=== PATIENT | male | born 1970 | race Caucasian/White ===

== ENCOUNTER → 2017-05-07 | Outpatient (CLI) | payer OTHER ==
[~2017-05-07] MED LIST: ASPI81TA28 PO; FEXO1TAB49 PO; HYDR25TA4 PO; LISI-461 PO; VNTHFA/IN INH
--- NOTE | 2017-05-08 06:37 | PAP/PSG TECHNICIAN REPORT ---
[facility] Repair Clerk Polysomnogram Report Study name: None Report date: 05/08/2017 Study date: 05/07/2017 Referring Physician: Nidhi Dunbra M.D. Name: YESSENIA ALARCON Interpreting Physician: Willie Dunbar M.D. Date of : 1970 Repair Clerk: SHELLI Conklin. Sex: Male Age: 46 StudyType: PSG Weight: 321 lbs Height: 46 years, Height 6' 0.5" Neck Circum: 18 inches BMI: 42.93 Medications: Aisha 180 mg, Lisinopril 10 mg, HCTZ 25 mg, Aspirin 81 mg, Fish Oil 3600 mg Patient History 46 yr. old male here for a possible split night sleep study in room 6. Patient has atrial fibrillation, loud snoring, and unrefreshing sleep. Patients Brother has MAGDI. Patients [place] sleepiness scale score is 8/24. Parameters Monitored NPSG: E1-M2, E2-M1, Fp1-M2, Fp2-M1, F3-M2, F4-M2, F4-M1, C3-M2, C4-M2, C4-M1, O1-M2, O2-M2, O2-M1, T3-M2, T4-M1, P3-M2, P4-M1, CHIN1, CHIN2, HR, EKG, Legs, PFLOW, SNOR, FLOW, CFLOW, Tidal Volume, THOR, ABDO, SpO2, PLTH, CPRESS, ETCO2 Wave, ETCO2, pH Sleep Architecture Sleep Stages Time at Lights Off 9:35:58 PM STAGES Time (min.) TST (%) Time at Lights On 5:41:28 AM Wake 110.5 -- Total Recording Time (TRT) 486.50 min. N1 44.5 12 Total Sleep Period (TSP) 454.0 min. N2 269.5 72 Total Sleep Time (TST) 375.0min. N3 32.0 9 Awake Time 110.5 min. REM 29.0 8 Wake after Sleep Onset 79.0 min. Sleep Efficiency (SE) 77 % Sleep Onset Latency (BIRGIT) 31.5 min. Number of Stage 1 Shifts None Awakenings 35 Stage Changes 120 Number of REM periods 4 REM 29.0 8 REM Latency 183.5 min. NREM 346.0 92 Body Position Analysis Supine Right Left Side Prone Vertical Total Sleep Time (min.) 222.0 135.9 82.0 217.87 0.0 0.0 Total Sleep Time (%) 42% 36% 22% 58 0% N/A% Total Sleep Time REM (min.) 7.0 22.0 0.0 None 0.0 0.0 Total Sleep Time NREM (min.) 150.1 113.9 82.0 None 0.0 0.0 Intermittent Wake (min.) 64.9 16.3 29.3 None 0.0 0.0 Total Sleep Period (%) 42% None None None None None Arousals Myoclonus (PLM) * Events Count Index Events Count Index Spontaneous 5 1 Events Awake (PLMW) 70 38.0 Respiratory 3 0.5 Events Asleep w/ Arousal (PLMA) 19 3.0 PLM 18 3 Events Asleep w/o Arousal (PLMS) 26 4.2 Snoring 8 1 Total Asleep 45 7.2 Total 34 5 Total 115 14 Respiratory Analysis * CA OA MA CH H RERA Total Count 0 0 0 0 97 0 97 Index 0.0 0.0 0.0 0 15.5 0 15.5 Mean Duration 0.0 0.0 0.0 0.00 21.5 0.0 21.5 Longest Duration 0.0 0.0 0.0 0.00 0.0 0.0 57.7 Respiratory Event Summary Total Supine ~Supine Right Left Prone REM NREM Apneas Count 0 0 0 0 0 N/A 0 0 Index 0.0 0 0 0.0 0.0 N/A 0 0 Hypopneas (4% Desat) Count 97 62 35 22 13 N/A 15 82 Index 15.5 23.7 10 9.7 9.5 N/A 31.0 14.2 Apneas & All Hypopneas Count 97 62 35 22 13 N/A 15 82 Index 15.5 24 10 10 10 N/A 31.0 14.2 Respiratory Events (Adolescent Counselor+All Hyp+RERA) Count 97 62 35 22 13 N/A 15 82 Index 15.5 24 10 9.7 9.5 N/A 31.0 14.2 Respiratory Related Arousal Count 3 62 2 2 0 N/A 1 2 Index 0.5 0 1 1 0 N/A 2 0 Snoring Analysis Supine Right Left Prone REM NREM Total Snore duration 25.3 min Snores count 518 357 158 N/A 22 1,011 1,033 Snore mean duration 1.5 Sec Snores index 198 158 116 N/A 45.5 175.3 165.3 TST with snoring (%) 6.7% Desaturation Event Summary: Minimum %SpO2 Event Count Mean/Min/Max Duration(sec.) Desaturation Index % Time In Bed > 90 80 26.2 / 7.0 / 51.8 11.1 90.9 86 - 90 3 29.1 / 15.0 / 50.5 4.2 9.1 81 - 85 0 N/A 0.0 0.0 76 - 80 0 N/A 0.0 0.0 71 - 75 0 N/A 0.0 0.0 66 - 70 0 N/A 0.0 0.0 61 - 65 0 N/A 0.0 0.0 56 - 60 0 N/A 0.0 0.0 51 - 55 0 N/A 0.0 0.0 < 50 0 N/A 0.0 0.0 Total REM NREM Awake <50% 0.0 min. 0.0 min. 0.0 min. 0.0 min. 51 - 60% 0.0 min. 0.0 min. 0.0 min. 0.0 min. 61 - 70% 0.0 min. 0.0 min. 0.0 min. 0.0 min. 71 - 80% 0.0 min. 0.0 min. 0.0 min. 0.0 min. 81 - 90% 43.1 min. 7.3 min. 33.2 min. 2.5 min. 91 - 100% 432.8 min. 21.7 min. 312.0 min. 99.1 min. Average 92 92 92 93 Minimum SpO2 87 87 88 89 Desaturation Event Index 9.9 26.9 11.3 2.7 # Desat. Events below 89% 5 4 1 N/A Time(%) with Saturation below 89% 0.4 0.3 0.0 0.0 Time(min.) with Saturation below 89% 1.8 1.6 0.2 0.0 Time (mins) REM (mins) NREM (mins) % of TST SpO2 Below 90% 50 11 N39 2.2 SpO2 Below 88% 2 0 0 0 Heart Rate Analysis Min (bpm) Max (bpm) Average (bpm) Awake 30 127 50 NREM 40 79 47 REM 43 63 51 Overall 40 79 48 Supplemental O2 Values Minimum O2 level: None Value Start Time End Time Repair Clerk Comments Mr Alarcon slept in the right, left, and supine positions. No cardiac arrhythmia. PLMs noted. No bruxism noted. Snoring was noted and scored as a 3 on a scale of 0 through 5. (0=no snoring, 5=snoring loud enough to be heard through a closed door or down the parra way) Mr Alarcon did not wake to use the restroom during the night. Mr Alarcon stated, "I did not sleep as well as I do when I am in my own bed, I was worried about the wires. The final report will be interpreted and signed by a sleep physician. The completed physician report will then be placed in the patient medical record. Therapy (cm H2O) 0 TIB (min.) 485.5 TST (min.) 375.0 Sleep Onset (min.) 31.5 REM Onset From Sleep (min.) 183.5 Sleep Efficiency % 77 Wakefulness (%) 23 Wakefulness (min.) 110.5 NREM 1 (%) 12 NREM 1 (min.) 44.5 NREM 2 (%) 72 NREM 2 (min.) 269.5 NREM 3 (%) 9 NREM 3 (min.) 32.0 REM (%) 8 REM (min.) 29.0 # Arousals 34 Arousal Index 5 # Snore 1,033 Snore Index 165.3 AHI 15.5 AHI Supine 24 AHI Non-Supine 10 NREM AHI 14.2 REM AHI 31.0 RDI 15.5 # Obstructive Apnea 0 # Central Apnea 0 # Mixed Apnea 0 # Hypopneas 97 RERAs 0 Total Respiratory Events 98 Time Below SpO2 89% (min.) 1.8 Mean NREM SpO2 (%) 92 Mean REM SpO2 (%) 92 Mean Sleep SpO2 (%) 92 Min NREM SpO2 (%) 88 Min REM SpO2 (%) 87 Position Supine (min.) 222.0 Position Non-supine (min.) 217.9 LM Index Sleep 7.2 LM Index NREM 6.4 LM Index REM 16.6 Mean Heart Rate (bpm) 48 Min Heart Rate (bpm) 40
--- NOTE | 2017-05-14 14:03 | POLYSOMNOGRAPH REPORT ---
REFERRING PERSON: Dr. Regino Dunbar. PULPIT OPERATOR: Annalise Ag. Mr. Senior is a 46-year-old male sent for a possible split night sleep study. He has a history of atrial fibrillation, loud snoring and unrefreshing sleep. His brother has a history of obstructive sleep apnea. His [place] Sleepiness Scale score on the evening of this study is 8. BMI is 42.93. Following the technical and digital specifications of the [place] [employer] (AASM) a standard diagnostic polysomnogram was performed monitoring EEG, EOG, EMG (chin and leg deviations), oxygen saturation, body position, digital video, respiratory effort and airflow.? The sleep Stage and event scoring was based on the AASM Manual for the Scoring of Sleep and Associated Events 2007 edition.? Apneas are defined as a drop in the peak thermal sensor excursion by >90% of baseline for at least 10 seconds.? Hypopneas were scored using the 4% oxygen desaturation rule (4A-[employer]) and a decrease in the nasal pressure excursions by >30% of baseline for at least 10 seconds.? Respiratory effort-related arousal (RERA's) is defined as a sequence of breaths lasting at least 10 seconds characterized by increasing respiratory effort or flattening of the nasal pressure waveform leading to an arousal from sleep when the sequence of breaths does not meet criteria for an apnea or hypopnea.? Apnea Hypopnea index (AHI) is defined as the number of apneas and hypopneas occurring in an hour of sleep.? Respiratory disturbance index (RDI) is defined as the number of apneas, hypopneas, and RERA's occurring in an hour of sleep. Mr. Senior's total sleep period time was 454 minutes. Total sleep time was 375 minutes. Sleep efficiency was 77%. Latency to sleep onset was 31.5 minutes with wake after sleep onset of 79 minutes. Total non-REM sleep time was 346 minutes. He spent 12% of that time in N1 sleep, 72% in N2 sleep and 9% in N3 sleep. REM latency was 183.5 minutes. Total REM sleep time was 29 minutes or 8% of total sleep time. There were 34 cortical arousals from sleep. Five of these arousals were spontaneous, 3 were due to respiratory events, 18 were due to periodic limb movements of sleep and 8 were due to snoring. There were 45 periodic limb movements noted on this test. Limb movement index was 7.2. Limb movement with arousal index was 3. There were no central obstructive or mixed apneas on this test. There were 97 hypopnea. Apnea-hypopnea index was 15.5. Supine AHI was 24, non-supine AHI was 10. REM AHI was 31. There were 1033 snoring events recorded. Total sleep time with snoring was 6.7%. Mean saturation was 92% with desaturations to 87%. Saturations were less than 89% for 1.8 minutes of recorded time. There was no cardiac ectopy noted on this study. Heart rates ranged from a low of 40 beats per minute to a high of 79 beats per minute during sleep. IMPRESSION AND PLAN: A 46-year-old male with evidence of moderately severe sleep apnea, severe during REM sleep and more significant in supine versus non-supine sleep. 1. This patient would likely benefit from positive airway pressure therapy. He should return to the sleep lab for a full night titration and then based on those results be started on equipment at home. A download from his machine can be reviewed in 1 month both to check compliance as well as AHI and further pressure adjustments can occur at that time. 2. Alternatively, this patient could be started on auto titrating CPAP with pressures of 5-15 cm. After a month, this patient could be set to optimal pressure. 3. Should this patient be unwilling or unable to tolerate CPAP therapy, he could be referred to ear, nose and throat or oral surgery/dental medicine (if appropriate) to discuss alternative treatments for sleep disordered breathing.
== END | disposition home or self-care (01) ==
LOC: C.NEUR 20:00
PROVIDERS: ATTEND Family Medicine
DX: R06.83 Snoring (principal); G47.10 Hypersomnia, unspecified

== ENCOUNTER 2025-09-16 12:31 | Observation (INO) ==
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
--- NOTE | 2025-09-16 13:09 | XRay Report ---
XR pelvis 1-2V routine CLINICAL HISTORY: Trauma COMPARISON: None FINDINGS: No fracture or dislocation seen. IMPRESSION: No fracture seen. ACT 112: Negative or not required by law. Electronically signed by: Saul Alfaro M.D. 09/16/2025 1:08 PM
--- NOTE | 2025-09-16 13:10 | XRay Report ---
XR chest 1V portable CLINICAL HISTORY: Trauma COMPARISON STUDY: None FINDINGS: Heart size and pulmonary vasculature are normal. No consolidation or pleural effusion. No p neumothorax. IMPRESSION: No acute findings. ACT 112: Negative or not required by law. Electronically signed by: Saul Alfaro M.D. 09/16/2025 1:08 PM
[2025-09-16 13:23] LABS: Hematocrit (blood only) 41.5 % (42.0-52.0); Hemoglobin 14.9 g/dl (14.0-18.0); Mean Corpuscular Hemoglobin 31.0 pg (25.0-34.0); Mean Corpuscular Volume 86.3 fL (80.0-100.0); Platelet Count 191 K/uL (130-400); RDW Standard Deviation 38.2 fL (36.4-46.3); Red Blood Count 4.81 M/uL (4.70-6.10); White Blood Count 12.96 K/ul (4.8-10.8)
[2025-09-16] MEDS: OPTIRAY 320 100ml IV ONE (13:26)
[2025-09-16] MEDS: ACETAMINOPHEN 1,000 MG/100 ML VIAL IV STA (13:29)
--- NOTE | 2025-09-16 13:36 | CT Scan Report ---
CT head/brain wo con CLINICAL HISTORY: fall, on eliquis. TECHNIQUE: Multiple axial CT images of the head were obtained without contrast. A dose lowering tech nique was utilized adhering to the principles of ALARA. COMPARISON: None FINDINGS: No intracranial hemorrhage seen. No mass effect, midline shift, or hydrocephalus. Visualize d paranasal sinuses and mastoid air cells are clear. No skull fracture seen. IMPRESSION: No acute findings. ACT 112: Negative or not required by law. The above report was generated using voice recognition software. It may contain grammatical, syntax o r spelling errors. Electronically signed by: Saul Alfaro M.D. 09/16/2025 1:34 PM
[2025-09-16 13:45] LABS: Immature Granulocytes # (auto) 0.05 K/uL (0.01-0.20); Immature Granulocytes % (auto) 0.4 %
[2025-09-16 13:46] LABS: Alanine Aminotransferase 42 U/L (7-52); Albumin Globulin Ratio 1.1 (0.9-2); Albumin Level 3.9 gm/dl (3.4-5.0); Alkaline Phosphatase 66 U/L (34-104); Anion Gap 7 (3-11); Bilirubin,Total 1.0 mg/dl (0.2-1.0); Blood Urea Nitrogen 14 mg/dl (6-23); Calcium 8.7 mg/dl (8.6-10.3); Carbon Dioxide 25 mmol/L (21-32); Chloride 105 mmol/L (98-107); Creatine Kinase 187 U/L (30-223); Globulin 3.5 gm/dl (2.5-4.0); Glucose 196 mg/dl (70-99(Fasting)); Lipase 17 U/L (11-82); Potassium 4.2 mmol/L (3.5-5.1); Sodium 137 mmol/L (136-145); Total Protein 7.4 gm/dl (6.0-8.3)
--- NOTE | 2025-09-16 13:46 | CT Scan Report ---
CT SCAN OF THE CERVICAL SPINE CLINICAL HISTORY: Fall COMPARISON STUDY: No priors TECHNIQUE: CT scan of the cervical spine is performed from the skull base to the upper thoracic spine . Images are reviewed in the axial, sagittal, and coronal planes. IV contrast was not administered fo r this examination. A dose lowering technique was utilized adhering to the principles of ALARA. FINDINGS: Skeletal structures: The skeletal structures are well mineralized. There is no evidence of fracture o r subluxation involving the cervical spine. Vertebral body height and alignment are maintained. There is straightening of the cervical lordosis. Anterior osteophytes are seen throughout. The odontoid pr ocess and lateral masses are intact. The atlantoaxial articulation is preserved noting productive deg enerative change. The spinous processes appear intact. Mild facet arthropathy seen in the lower cervi semaj region. Intervertebral discs: There is mild disc space narrowing at C5-C6 and C6-C7. The remaining disc space s are preserved. Central canal: Posterior disc osteophyte complexes at C5-C6 and C6-C7 may contribute to mild acquired compromise of the central canal. Soft tissues: The prevertebral and paraspinous soft tissues are within normal limits. Calvarium: The visualized calvarium at the skull base appears intact. Brain parenchyma: Partially visualized brain parenchyma at the skull base is within normal limits. Sinuses and mastoids: The visualized paranasal sinuses are clear. The mastoid air cells are well pneu matized. Lung apices: Clear as visualized. IMPRESSION: There is no evidence of fracture or subluxation involving the cervical spine. ACT 112: Negative or not required by law. Electronically signed by: Aubrey Crenshaw M.D. 09/16/2025 1:44 PM
[2025-09-16 13:54] LABS: INR 1.2 (0.9-1.1); Partial Thromboplastin Time 28 Seconds (21-31); Prothrombin Time 12.2 Seconds (9.0-12.0)
--- NOTE | 2025-09-16 14:02 | CT Scan Report ---
CT SCAN OF THE ABDOMEN AND PELVIS WITH IV CONTRAST CLINICAL HISTORY: Fall. COMPARISON STUDY: Pelvic x-ray dated 09/16/2025. TECHNIQUE: Following the IV administration of 94 cc of Optiray 320, CT scan of the abdomen and pelvi s is performed from the lung bases to the proximal femora. Images are reviewed in the axial, sagittal , and coronal planes. IV contrast was administered without complication. A dose lowering technique wa s utilized adhering to the principles of ALARA. CT DOSE: 3853.91 mGy.cm FINDINGS: Lung bases: The heart is normal in size and without pericardial effusion. The lung bases are clear no ting mild bibasilar atelectasis. Liver: The contrast-enhanced liver is normal in size, contour, and attenuation. There is no intrahepa tic biliary ductal dilatation. The hepatic veins and portal veins are patent. Gallbladder: Surgically absent noting clips in the gallbladder fossa. Spleen: Normal in size and attenuation. Pancreas: Unremarkable. Adrenal glands: Unremarkable. Kidneys: The contrast enhanced kidneys are normal in size and without hydronephrosis. The kidneys enh ance symmetrically. Scattered subcentimeter cortical hypodensities likely represent cysts but are too small for definitive characterization. Abdominal vasculature: The abdominal aorta is normal in course and caliber. Bowel: There is no bowel obstruction. Mild fecal retention is seen throughout the colon. The appendix is not visualized. Peritoneum: There is no intraperitoneal free air or abdominal ascites. There is a fat-containing umbi lical hernia. Lymphadenopathy: None. Pelvic viscera: The bladder is distended but otherwise normal as imaged. The prostate and seminal ves icles are normal as visualized. Skeletal structures: There is a complex comminuted compression fracture of the L2 vertebral body. Thi s is best seen on sagittal image #46 comment fractures involve the superior endplate, and inferior en dplate, the anterior cortex, as well as both the medial and lateral cortex. This does not appear to e xtend through the posterior cortex, and there is no posterior element involvement identified. There i s only mild loss of height. No retropulsion of fragments is seen. There is associated paravertebral h emorrhage, as well as intramuscular hemorrhage within the right dany of the diaphragm seen on axial i mage #137. There is a mild chronic-appearing superior endplate compression deformity of L1. No additi onal acute fracture is identified. The bony pelvis and proximal femora appear intact. Mild sclerotic changes noted in the sacroiliac joints. There is a left-sided pars defect at L5. Mild lumbosacral spo ndylosis is observed. No lytic or blastic lesions are seen. IMPRESSION: 1. There is a complex comminuted compression fracture of the L2 vertebral body as detailed above. Alt eliane this does not involve the posterior cortex this may be unstable. Orthopedic evaluation is advis ed. 2. There is only mild loss of height at L2, with no retropulsion of fragments seen. 3. There is paravertebral hemorrhage at L2, as well as intramuscular hemorrhage within the right dany of the diaphragm. 4. There is no evidence of solid organ injury in the abdomen or pelvis. 5. Additional findings as above. ACT 112: Negative or not required by law. Electronically signed by: Aubrey Crenshaw M.D. 09/16/2025 2:00 PM
--- NOTE | 2025-09-16 14:08 | CT Scan Report ---
CT SCAN OF THE CHEST WITH IV CONTRAST CLINICAL HISTORY: Fall. COMPARISON STUDY: Chest radiograph performed earlier today. TECHNIQUE: Following the IV administration of 94 cc of Optiray 320, CT scan of the thorax was perform ed from the thoracic inlet to the upper abdomen. Images are reviewed in the axial, sagittal, and nicole nal planes. IV contrast was administered without complication. A dose lowering technique was utilize d adhering to the principles of ALARA. FINDINGS: There is no evidence for traumatic injury to the thoracic aorta. Size of the heart is rock l. There is no pericardial effusion. There is no mediastinal hematoma. No pneumothorax or pleural eff usion is present. There is no pulmonary contusion. There are no suspicious pulmonary nodules. Linear densities within the lungs represent atelectasis. No acute rib or thoracic spine fractures are identi fied. The abdomen and pelvis CT will be reported separately. IMPRESSION: No acute traumatic findings within the chest. ACT 112: Negative or not required by law. Electronically signed by: Julius Fletcher M.D. 09/16/2025 2:07 PM
--- NOTE | 2025-09-16 15:03 | Orthopedic Consultation ---
Date of Service September 16, 2025 Assessment & Plan (1) Traumatic compression fracture of L2 vertebra: * Case/imaging reviewed and discussed with Dr Macario * Recommend closed management of L2 fracture * Discussed with the ED team, plan is for admission for observation overnight and completion of studies * MRI lumbar spine pending * TLSO brace ordered * Weight bearing status: WBAT, activity as tolerated with brace * Daily treatment: Physical Therapy/ Occupational Therapy per protocol * Pain control * Disposition: Home * Remainder care per primary team * Will continue to follow * * Patient seen and examined, recommend brace treatment, discussed with patient, follow-up in the next 1 to 2 weeks with follow-up radiographs. History of Present Illness Reason for Consultation: Trauma, L2 fracture Requesting Physician: . . Patient is a 54y/o male with low back pain. PMH including HTN, A-fib on Eliquis. Presents to hospital with low back pain after a fall. Patient reports he was working on his tree stand, climbing down when it became loose and he fell to the ground approximately 8 feet landing on his back. Immediate low back and right sided buttock pain. Was able to ambulate after a few minutes of rest. No new onset tingling, numbness, weakness. Current workup including CT CAP demonstrating L2 fracture. Orthopedics consulted for management recommendations. At time of exam patient sitting comfortably in bed, no acute distress. Endorses midline low back pain that is improved with rest but increases with attempted movement or ambulation. Denies tingling or numbness of bilateral lower extremity. Some baseline tingling of his right toes secondary to known sciatica. Denies changes to bowel or bladder function. No assistive ice at the baseline. 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 Allergies Allergy/AdvReac Type Severity Reaction Status Date / Time No Known Allergies Allergy Verified 03/15/22 09:44 Home Medications Medication Instructions Recorded Confirmed Type apixaban 5 mg tablet (Eliquis) 5 mg PO BID 03/07/22 09/16/25 History fexofenadine 180 mg tablet 180 mg PO QAM 03/07/22 09/16/25 History (Aisha Allergy) lisinopril 10 mg tablet 10 mg PO QAM 03/07/22 09/16/25 History metoprolol succinate 25 mg 25 mg PO QAM 03/07/22 09/16/25 History tablet,extended release 24 hr dulaglutide 1.5 mg/0.5 mL 1.5 mg subcut WK 09/16/25 09/16/25 History subcutaneous pen injector (Trulicity) metformin 500 mg tablet,extended 500 mg PO DAILY 09/16/25 09/16/25 History release 24 hr Past Med/Surg History Problem List (Updated 09/16/25 @ 16:11 by Eliseo Espinoza DO) Diabetes mellitus type 2, noninsulin dependent Chronic atrial fibrillation Fall (Acute) A-fib (Acute) Current use of fdc anticoagulation (Acute) Closed compression fracture of L2 vertebra (Acute) Traumatic compression fracture of L2 vertebra Screen for colon cancer New onset atrial fibrillation Asthma (Chronic) "allergic" Traumatic amputation of toe (Chronic) Allergic rhinitis (Chronic) S/P appendectomy (Chronic) HTN (hypertension) Medical History Atrial fibrillation on eliquis bid--follows with Dr. Bridges HTN (hypertension) Morbid obesity with BMI of 40.0-44.9, adult On anticoagulant therapy on eliquis bid Sleep apnea cpap Surgical History History of appendectomy History of cholecystectomy History of toe surgery right foot 2nd to last toe amputated History of tooth extraction permanent dental implants in place Family History Other No family history of adverse response to anesthesia Social History Smoking Status: Never smoker Second Hand Exposure: No; Do You Dip or Chew Tobacco: No (quit chew a while ago); Hx Alcohol Use: No Hx Substance Use: No Preferred Language: Tajik Communication Ability: Effective Plate Finisher Required: No Beliefs That Will Affect Care: None Current Living Situation: Spouse Other Information That Helps Us Care for You: No Feels Safe at Home: Yes Safety Concerns: Feels Safe At This Time Assistive Devices: CPAP Review of Systems All systems reviewed & are unremarkable except as noted in HPI & below. Physical Exam . * General: Alert and oriented, no acute distress * Constitutional: well-developed, well-nourished. * Respiratory: Normal respiratory effort, no distress * Gastrointestinal: No tenderness to palpation, no rigidity or guarding. * Skin: No rash or lesion. * Neurologic: Grossly normal * Musculoskeletal: Lumbar region without obvious deformity or overlying skin changes. Otherwise no deformity or skin changes to bilateral lower extremity. Moderate low back pain with lumbar flexion/extension, rotation. AROM hip flexion, knee extension, ankle plantar/dorsiflexion 5/5 bilaterally. Sensation intact plantar/dorsal foot bilaterally. Brisk capillary refill. Results & Data Results & Data Laboratory Results . Diagnostic Findings . Chest X-Ray 09/16/25 12:47 XR chest 1V portable CLINICAL HISTORY: Trauma COMPARISON STUDY: None FINDINGS: Heart size and pulmonary vasculature are normal. No consolidation or pleural effusion. No pneumothorax. IMPRESSION: No acute findings. ACT 112: Negative or not required by law. Electronically signed by: Saul Alfaro M.D. 09/16/2025 1:08 PM Pelvis X-Ray 09/16/25 12:47 XR pelvis 1-2V routine CLINICAL HISTORY: Trauma COMPARISON: None FINDINGS: No fracture or dislocation seen. IMPRESSION: No fracture seen. ACT 112: Negative or not required by law. Electronically signed by: Saul Alfaro M.D. 09/16/2025 1:08 PM Abdomen/Pelvis CT 09/16/25 12:52 CT SCAN OF THE ABDOMEN AND PELVIS WITH IV CONTRAST CLINICAL HISTORY: Fall. COMPARISON STUDY: Pelvic x-ray dated 09/16/2025. TECHNIQUE: Following the IV administration of 94 cc of Optiray 320, CT scan of the abdomen and pelvis is performed from the lung bases to the proximal femora. Images are reviewed in the axial, sagittal, and coronal planes. IV contrast was administered without complication. A dose lowering technique was utilized adhering to the principles of ALARA. CT DOSE: 3853.91 mGy.cm FINDINGS: Lung bases: The heart is normal in size and without pericardial effusion. The lung bases are clear noting mild bibasilar atelectasis. Liver: The contrast-enhanced liver is normal in size, contour, and attenuation. There is no intrahepatic biliary ductal dilatation. The hepatic veins and portal veins are patent. Gallbladder: Surgically absent noting clips in the gallbladder fossa. Spleen: Normal in size and attenuation. Pancreas: Unremarkable. Adrenal glands: Unremarkable. Kidneys: The contrast enhanced kidneys are normal in size and without hydronephrosis. The kidneys enhance symmetrically. Scattered subcentimeter cortical hypodensities likely represent cysts but are too small for definitive characterization. Abdominal vasculature: The abdominal aorta is normal in course and caliber. Bowel: There is no bowel obstruction. Mild fecal retention is seen throughout the colon. The appendix is not visualized. Peritoneum: There is no intraperitoneal free air or abdominal ascites. There is a fat-containing umbilical hernia. Lymphadenopathy: None. Pelvic viscera: The bladder is distended but otherwise normal as imaged. The prostate and seminal vesicles are normal as visualized. Skeletal structures: There is a complex comminuted compression fracture of the L2 vertebral body. This is best seen on sagittal image #46 comment fractures involve the superior endplate, and inferior endplate, the anterior cortex, as well as both the medial and lateral cortex. This does not appear to extend through the posterior cortex, and there is no posterior element involvement identified. There is only mild loss of height. No retropulsion of fragments is seen. There is associated paravertebral hemorrhage, as well as intramuscular hemorrhage within the right dany of the diaphragm seen on axial image #137. There is a mild chronic-appearing superior endplate compression deformity of L1. No additional acute fracture is identified. The bony pelvis and proximal femora appear intact. Mild sclerotic changes noted in the sacroiliac joints. There is a left-sided pars defect at L5. Mild lumbosacral spondylosis is observed. No lytic or blastic lesions are seen. IMPRESSION: 1. There is a complex comminuted compression fracture of the L2 vertebral body as detailed above. Although this does not involve the posterior cortex this may be unstable. Orthopedic evaluation is advised. 2. There is only mild loss of height at L2, with no retropulsion of fragments seen. 3. There is paravertebral hemorrhage at L2, as well as intramuscular hemorrhage within the right dany of the diaphragm. 4. There is no evidence of solid organ injury in the abdomen or pelvis. 5. Additional findings as above. ACT 112: Negative or not required by law. Electronically signed by: Aubrey Crenshaw M.D. 09/16/2025 2:[address] 09/16/25 12:52 CT SCAN OF THE CERVICAL SPINE CLINICAL HISTORY: Fall COMPARISON STUDY: No priors TECHNIQUE: CT scan of the cervical spine is performed from the skull base to the upper thoracic spine. Images are reviewed in the axial, sagittal, and coronal planes. IV contrast was not administered for this examination. A dose lowering technique was utilized adhering to the principles of ALARA. FINDINGS: Skeletal structures: The skeletal structures are well mineralized. There is no evidence of fracture or subluxation involving the cervical spine. Vertebral body height and alignment are maintained. There is straightening of the cervical l ordosis. Anterior osteophytes are seen throughout. The odontoid process and lateral masses are intact. The atlantoaxial articulation is preserved noting productive degenerative change. The spinous processes appear intact. Mild facet arthropathy seen in the lower cervical region. Intervertebral discs: There is mild disc space narrowing at C5-C6 and C6-C7. The remaining disc spaces are preserved. Central canal: Posterior disc osteophyte complexes at C5-C6 and C6-C7 may contribute to mild acquired compromise of the central canal. Soft tissues: The prevertebral and paraspinous soft tissues are within normal limits. Calvarium: The visualized calvarium at the skull base appears intact. Brain parenchyma: Partially visualized brain parenchyma at the skull base is within normal limits. Sinuses and mastoids: The visualized paranasal sinuses are clear. The mastoid air cells are well pneumatized. Lung apices: Clear as visualized. IMPRESSION: There is no evidence of fracture or subluxation involving the cervical spine. ACT 112: Negative or not required by law. Electronically signed by: Aubrey Crenshaw M.D. 09/16/2025 1:[address] 09/16/25 12:52 CT SCAN OF THE CHEST WITH IV CONTRAST CLINICAL HISTORY: Fall. COMPARISON STUDY: Chest radiograph performed earlier today. TECHNIQUE: Following the IV administration of 94 cc of Optiray 320, CT scan of the thorax was performed from the thoracic inlet to the upper abdomen. Images are reviewed in the axial, sagittal, and coronal planes. IV contrast was administered without complication. A dose lowering technique was utilized adhering to the principles of ALARA. FINDINGS: There is no evidence for traumatic injury to the thoracic aorta. Size of the heart is normal. There is no pericardial effusion. There is no mediastinal hematoma. No pneumothorax or pleural effusion is present. There is no pulmonary contusion. There are no suspicious pulmonary nodules. Linear densities within the lungs represent atelectasis. No acute rib or thoracic spine fractures are identified. The abdomen and pelvis CT will be reported separately. IMPRESSION: No acute traumatic findings within the chest. ACT 112: Negative or not required by law. Electronically signed by: Julius Fletcher M.D. 09/16/2025 2:[address] 09/16/25 12:52 CT head/brain wo con CLINICAL HISTORY: fall, on eliquis. TECHNIQUE: Multiple axial CT images of the head were obtained without contrast. A dose lowering technique was utilized adhering to the principles of ALARA. COMPARISON: None FINDINGS: No intracranial hemorrhage seen. No mass effect, midline shift, or hydrocephalus. Visualized paranasal sinuses and mastoid air cells are clear. No skull fracture seen. IMPRESSION: No acute findings. ACT 112: Negative or not required by law. The above report was generated using voice recognition software. It may contain grammatical, syntax or spelling errors. Electronically signed by: Saul Alfaro M.D. 09/16/2025 1:34 PM PG Care Time/CCT Total # of Minutes Spent Total Time Spent with Patient: Total time spent is greater than 50% in coordination of care (as documented) at patient's floor/unit and/or counseling patient: [place] [address] IN/OBS CONSULT LVL 4,60M Patient Type New Medical Decision Making Moderate Complexity Diagnoses Traumatic compression fracture of L2 vertebra S32.020A
--- NOTE | 2025-09-16 15:20 | CT Scan Report ---
CT SCAN OF THE LUMBAR SPINE WITH IV CONTRAST CLINICAL HISTORY: L2 fracture. Fall. COMPARISON STUDY: Abdominal CT performed the same date 09/16/2025. TECHNIQUE: Following the IV administration 94 cc of Optiray 320, CT scan of the lumbar spine is perf ormed from the lower thoracic spine to the sacrum. Images are reviewed in the axial, sagittal, and co angely planes. IV contrast was administered without complication. A dose lowering technique was utili zed adhering to the principles of ALARA. FINDINGS: Skeletal structures: The skeletal structures are well mineralized. Again seen is a complex comminuted compression fracture of the L2 vertebral body. This is best seen on sagittal image #53, and the frac ture involves the superior and inferior endplates, the anterior cortex, as well as both the medial an d lateral cortex. This does not appear to extend through the posterior cortex, and there is no structural metal worker ior element involvement identified. There is only mild loss of height. No retropulsion of fragments i s seen. There is associated paravertebral hemorrhage, as well as intramuscular hemorrhage within the right dany of the diaphragm seen on axial image #52. There is a mild chronic-appearing superior endpl ate compression deformity of L1. Vertebral body height is otherwise maintained throughout the lumbar spine. Alignment is preserved. Tiny anterior and lateral marginal osteophytes are seen throughout. Th e transverse and spinous processes appear intact. A left-sided pars defect is noted at L5. No lytic o r blastic lesion is seen. The disc spaces appear maintained. Posterior discussed effect complexes at L4-L5 and L5-S1 may contribute to mild acquired compromise of the central canal. The abdominal aorta is normal in caliber. No retroperitoneal lymphadenopathy is seen. IMPRESSION: 1. There is a complex comminuted compression fracture of the L2 vertebral body as detailed above. Alt eliane this does not involve the posterior cortex this may be unstable. Orthopedic evaluation is advis ed. 2. There is only mild loss of height at L2, with no retropulsion of fragments seen. 3. There is paravertebral hemorrhage at L2, as well as intramuscular hemorrhage within the right dany of the diaphragm. 4. There is a mild and chronic appearing superior endplate compression deformity of L1. 5. Additional findings as above. ACT 112: Negative or not required by law. Electronically signed by: Aubrey Crenshaw M.D. 09/16/2025 3:18 PM
--- NOTE | 2025-09-16 15:52 | History & Physical Report ---
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 Patient has been evaluated extensively in the emergency room and by orthopedics. Recommendations is ongoing management here at [facility]. Patient is on chronic anticoagulation, there is evidence of some hematoma and bruising in the paravertebral musculature surrounding the L2 compression fracture. Will hold Eliquis at least for the next 24 hours. Monitor hemoglobin Neurovascular checks every 4 hours Vital signs every 4 hours Pain control with oral medications and topical medications Orthopedics recommending MRI of the spine, results pending Orthopedics recommending TLSO brace, orthotics have been consulted Continue lisinopril and metoprolol for hypertension and rate control Patient reports he takes metformin and Trulicity at home. Will hold his medications and monitor glucose with insulin coverage. Patient made aware of how his diabetes will be managed in the hospital. Patient may use CPAP as at home. Anticipate if hemoglobin stable, pain is controlled, no further interventions r ecommended by orthopedics patient will be able to be discharged home tomorrow with outpatient follow-up. Would consider holding Eliquis 3 to 5 days to allow some initial healing and minimize size of hematoma. History of Present Illness Chief Complaint: Back and hip pain after falling out of a tree stand Primary Care Provider: Dhara Thapa MD Patient 54-year-old gentleman who was out in the [place] for [place]. He he was climbing out of his tree stand when it tree stand spine and he fell to the ground landing on his back. Immediate pain in his back and hips. Came to the emergency room for evaluation. Extensive workup and imaging in the emergency room revealed L2 fracture. Patient was evaluated by orthopedics while in the ED, felt as though the patient could be managed here. Recommend MRI of the back as well as a brace. Time my evaluation the patient received some IV Tylenol. Reports that his pain is controlled. He denies any fever or chills, no cough or cold symptoms, no chest pains, no shortness of breath, no new problems with his bowels or bladder. He states he has some chronic numbness in his right toe it is no worse today. He denies any numbness or tingling down his legs is able to move all of his lower extremities. No pins and needle sensation in his lower extremities. Allergies Allergy/AdvReac Type Severity Reaction Status Date / Time No Known Allergies Allergy Verified 03/15/22 09:44 Home Medications Medication Instructions Recorded Confirmed Type apixaban 5 mg tablet (Eliquis) 5 mg PO BID 03/07/22 03/15/22 History fexofenadine 180 mg tablet 180 mg PO QAM 03/07/22 03/15/22 History (Aisha Allergy) hydrochlorothiazide 25 mg tablet 25 mg PO QAM 03/07/22 03/15/22 History lisinopril 10 mg tablet 10 mg PO QAM 03/07/22 03/15/22 History metoprolol succinate 25 mg 25 mg PO QAM 03/07/22 03/15/22 History tablet,extended release 24 hr Past Med/Surg History Problem List (Updated 09/16/25 @ 16:11 by Eliseo Espinoza DO) Diabetes mellitus type 2, noninsulin dependent Chronic atrial fibrillation Fall (Acute) A-fib (Acute) Current use of skilled nursing anticoagulation (Acute) Closed compression fracture of L2 vertebra (Acute) Traumatic compression fracture of L2 vertebra Screen for colon cancer New onset atrial fibrillation Asthma (Chronic) "allergic" Traumatic amputation of toe (Chronic) Allergic rhinitis (Chronic) S/P appendectomy (Chronic) HTN (hypertension) Medical History Atrial fibrillation on eliquis bid--follows with Dr. Bridges HTN (hypertension) Morbid obesity with BMI of 40.0-44.9, adult On anticoagulant therapy on eliquis bid Sleep apnea cpap Surgical History History of appendectomy History of cholecystectomy History of toe surgery right foot 2nd to last toe amputated History of tooth extraction permanent dental implants in place Family History Other No family history of adverse response to anesthesia Social History Smoking Status: Never smoker Second Hand Exposure: No; Do You Dip or Chew Tobacco: No (quit chew a while ago); Hx Alcohol Use: No Hx Substance Use: No Preferred Language: Monegasque Communication Ability: Effective Cartridge Maker Required: No Beliefs That Will Affect Care: None Current Living Situation: Spouse Feels Safe at Home: Yes Assistive Devices: CPAP Review of Systems Review of Systems: Pertinent positive and negative review of systems as mentioned in the HPI Physical Exam Physical Exam: Constitutional: Alert,nontoxic, morbidly obese HEENT: Mucous membranes moist. Sclera clear Neck: Soft, no adenopathy Lungs: Clear to auscultation, decreased, no wheezes rales or rhonchi CV: S1-S2, regular Abdomen: Soft, nontender, nondistended Extremities: No significant edema, good pulses Musculoskeletal: Mild tenderness lumbar spine with some paravertebral musculature bogginess and tenderness Neuro: No focal deficits, moves all 4 extremities, sensation is intact in lower extremity Psych: Cooperative, normal mood Results & Data Results & Data Vital Signs (Past 12 Hours) Vital Signs Temp Pulse Pulse Resp BP BP Pulse Ox 09/16/25 15:13 82 17 118/74 97 09/16/25 15:11 86 17 118/74 96 09/16/25 12:53 86 09/16/25 12:47 09/16/25 12:33 36.5 C 96 H 20 123/71 96 09/16/25 12:31 36.8 C 92 H 20 147/100 H 97 O2 Del Method O2 Flow Rate 09/16/25 15:13 Room Air 09/16/25 15:11 Room Air 09/16/25 12:53 09/16/25 12:47 Room Air 09/16/25 12:33 Room Air 09/16/25 12:31 Room Air 0 Diagnostic Findings Reviewed imaging, laboratory and diagnostic studies. Pertinent findings as below. WBCs 12.9 Hemoglobin 14.9 Coagulation studies reviewed Electrolytes within normal range Creatinine 0.[address] showed complex comminuted compression fracture of L2, no retropulsion of fragments seen. There was some paravertebral hemorrhage at L2 as well as intramuscular hemorrhage. Reviewed imaging reports of head CT, chest CT, cervical spine CT, abdomen and pelvis CT, pelvic x-ray no acute fractures or findings Personally viewed chest x-ray, no acute cardiopulmonary modalities Personally viewed EKG: Atrial fibrillation controlled ventricular response Code Status & VTE Plan VTE Prophylaxis Plan VTE Prophylaxis will be ordered: Yes (1) Closed compression fracture of L2 vertebra Encounter type: initial encounter Qualified Code(s): S32.020A - Wedge compression fracture of second lumbar vertebra, initial encounter for closed fracture
--- NOTE | 2025-09-16 16:08 | Magnetic Resonance Report ---
MR lumbar spine wo con CLINICAL HISTORY: L2 fx. COMPARISON: CT earlier today TECHNIQUE: Multiplanar, multi sequence MRI of the lumbar spine was performed without intravenous cont rast. FINDINGS: Conus medullaris terminates normally at L1. There is mild height loss at the T12 and L1 amos tebral bodies without increased STIR signal consistent with old vertebral body compression abnormalit y. There is moderate height loss at the L2 vertebral body with diffuse increased STIR signal consiste nt with acute fracture. No significant retropulsion seen. No other fracture or subluxation seen at th e lung spine. No epidural hematoma seen. There is diffuse degenerative disc disease with facet and ligamentum flavum hypertrophy. Epidural fat is present. L1-2: No significant central canal or neural foraminal narrowing seen. L2-3: There is a minimal disc bulge. No significant central canal or neuroforaminal narrowing. L3-4: No significant disc bulge. No significant central canal or neural foraminal narrowing. L4-5: There is a mild disc bulge with annular tear. No significant central canal narrowing. There is mild bilateral neural foraminal narrowing. L5-S1: There is a moderate disc bulge with annular tear. No significant central canal narrowing. Ther e is moderate right and mild left neural foraminal narrowing. There is a 1.5 cm round low signal find ing centrally in the L5 vertebral body, nonspecific, but could represent atypical hemangioma. IMPRESSION: 1. Moderate acute vertebral body compression fracture at L2 without significant retropulsion or epidu ral hematoma. 2. Nonspecific low signal finding at the L5 vertebral body could represent atypical hemangioma and is felt to probably be benign in the absence of known primary malignancy. Follow-up lumbar MRI recommen ded in 6 months to reevaluate. 3. Otherwise as described. ACT 112: Positive. There are findings on this exam that require communication between the performing entity and the patient following Patient Test Result Information Act ([place] Act 112) guidelines. The above report was generated using voice recognition software. It may contain grammatical, syntax o r spelling errors. Electronically signed by: Saul Alfaro M.D. 09/16/2025 4:06 PM
[2025-09-16] MEDS ORDERED: GLUCOSE 40% GEL 15 GM TUBE PO PRN (18:42)
[2025-09-16] MEDS ORDERED: ALUMINUM/MAGNESIUM SUSP 30 ML UDC PO PRN (18:42)
[2025-09-16] MEDS ORDERED: CARBOHYDRATES FOR HYPOGLYCEMIA PO PRN (18:42)
[2025-09-16] MEDS ORDERED: MELATONIN 3 MG TAB PO PRN (18:42)
[2025-09-16] MEDS ORDERED: GLUCOSE 10 TAB/TUBE PO PRN (18:42)
[2025-09-16] MEDS ORDERED: GLUCAGON FOR INJ 1 MG VIAL SQ PRN (18:42)
[2025-09-16] MEDS ORDERED: DEXTROSE 50% 50 ML SYRINGE IV PRN (18:42)
[2025-09-16] MEDS: CeleBREX 200 MG CAP PO ONE (19:37)
[2025-09-16] MEDS: INSULIN ASPART PER UNIT CHARGE SC SCH (19:37)
[2025-09-16 20:11] LABS: Appearance Urine Clear (Clear); Bacteria Urine Automated None Seen (None Seen); Cast Urine Automated 0-2 /lpf (0-2); Epithelial Cell Urine Auto 0-2 /hpf (0-2); Glucose Urine UA Negative (Negative); WBC Urine Automated 0-5 /hpf (0-5)
[2025-09-16] MEDS: ACETAMINOPHEN 500 MG TAB PO SCH (21:52)
[2025-09-16] MEDS: LIDOCAINE 5% 1 PATCH TD SCH (21:55)
[2025-09-16] MEDS: REMOVE LIDODERM PATCH SCH (21:55)
[2025-09-16 23:15] VITALS: TEMP 98.2
[2025-09-17 06:28] LABS: Hematocrit (blood only) 39.4 % (42.0-52.0); Hemoglobin 14.5 g/dl (14.0-18.0); Mean Corpuscular Hemoglobin 32.0 pg (25.0-34.0); Mean Corpuscular Volume 87.0 fL (80.0-100.0); Platelet Count 164 K/uL (130-400); RDW Standard Deviation 39.1 fL (36.4-46.3); Red Blood Count 4.53 M/uL (4.70-6.10); White Blood Count 9.69 K/ul (4.8-10.8)
[2025-09-17 06:45] LABS: Anion Gap 7.0 (3-11); Blood Urea Nitrogen 13.0 mg/dl (6-23); Calcium 8.5 mg/dl (8.6-10.3); Carbon Dioxide 26.0 mmol/L (21-32); Chloride 106.0 mmol/L (98-107); Creatine Kinase 172.0 U/L (30-223); Creatinine Clr Calc Pharmacy 163.1 ml/min; Glucose 124.0 mg/dl (70-99(Fasting)); Magnesium 2.1 mg/dl (1.7-2.4); Potassium 4.2 mmol/L (3.5-5.1); Sodium 139.0 mmol/L (136-145)
[2025-09-17 07:08] LABS: Hemoglobin A1C 5.7 % (4.5-5.6)
[2025-09-17 07:44] VITALS: BP 127/85; PULSE 78; RESP 16; O2SAT 98
[2025-09-17] MEDS: CeleBREX 200 MG CAP PO SCH (07:54)
[2025-09-17] MEDS: METOPROLOL SUCC 25MG EXT REL TAB PO SCH (07:54)
[2025-09-17] MEDS: POLYETHYLENE (MIRALAX) 17 GM PACK PO SCH (08:00)
--- NOTE | 2025-09-17 11:18 | Discharge Summary ---
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 Patient has been evaluated extensively in the emergency room and by orthopedics. Lumbar spine CT and MRI performed, revealing a comminuted compression fracture of the L2 vertebral body as detailed above. Paravertebral hemorrhage at L2, as well as intramuscular hemorrhage within the right dany of t he diaphragm noted as well. Evaluated by ortho spine service - recommending TLSO brace with activity as tolerated and follow up in their clinic in 1-2 weeks for follow up XRs. Eliquis was held due to hematoma near L2 fracture and hgb is stable today at 14.5. Recommended patient resume tomorrow evening and repeat CBC with PCP in 1 week to monitor hgb. Pain has been controlled during admission with PRN tylenol and lidocaine patch. Neuro checks without acute change. Dc home with PCP and ortho spine follow up. Hemodynamically stable at time of discharge home. Of note, nonspecific low signal finding at the L5 vertebral body could represent atypical hemangioma and is felt to probably be benign in the absence of known primary malignancy. Follow-up lumbar MRI recommended in 6 months to reevaluate. Notes For Next Care Provider traumatic L2 fracture - sending with TLSO brace and ortho spine follow up Medication Changes From Visit home eliquis until tomorrow evening, pain control as below Admission HPI Per Admitting Provider Patient 54-year-old gentleman who was out in the [place] hunting for deer. He he was climbing out of his tree stand when it tree stand spine and he fell to the ground landing on his back. Immediate pain in his back and hips. Came to the emergency room for evaluation. Extensive workup and imaging in the emergency room revealed L2 fracture. Patient was evaluated by orthopedics while in the ED, felt as though the patient could be managed here. Recommend MRI of the back as well as a brace. Time my evaluation the patient received some IV Tylenol. Reports that his pain is controlled. He denies any fever or chills, no cough or cold symptoms, no chest pains, no shortness of breath, no new problems with his bowels or bladder. He states he has some chronic numbness in his right toe it is no worse today. He denies any numbness or tingling down his legs is able to move all of his lower extremities. No pins and needle sensation in his lower extremities. Admission Exam Per Admitting Provider Constitutional: Alert,nontoxic, morbidly obese HEENT: Mucous membranes moist. Sclera clear Neck: Soft, no adenopathy Lungs: Clear to auscultation, decreased, no wheezes rales or rhonchi CV: S1-S2, regular Abdomen: Soft, nontender, nondistended Extremities: No significant edema, good pulses Musculoskeletal: Mild tenderness lumbar spine with some paravertebral musculature bogginess and tenderness Neuro: No focal deficits, moves all 4 extremities, sensation is intact in lower extremity Psych: Cooperative, normal mood Discharge Exam Gen: WD/WN, NAD, resting in bed, obese, A&Ox3 HEENT: Normocephalic, atraumatic, mucous membranes moist Lung: Clear to Auscultation bilaterally, no wheezes/rales/rhonchi Heart: Regular rate, regular rhythm Abdomen: Soft, NT, ND +BS x 4 Extremities: no edema MSK: Mild TTP in lumbar region, lidocaine patch in place Neuro: No focal deficits Skin: Warm, no rash Updated Medication List Medication Instructions Recorded Confirmed Type apixaban 5 mg tablet (Eliquis) 5 mg PO BID 03/07/22 09/16/25 History fexofenadine 180 mg tablet 180 mg PO QAM 03/07/22 09/16/25 History (Aisha Allergy) lisinopril 10 mg tablet 10 mg PO QAM 03/07/22 09/16/25 History metoprolol succinate 25 mg 25 mg PO QAM 03/07/22 09/16/25 History tablet,extended release 24 hr dulaglutide 1.5 mg/0.5 mL 1.5 mg subcut WK 09/16/25 09/16/25 History subcutaneous pen injector (Trulicity) metformin 500 mg tablet,extended 500 mg PO DAILY 09/16/25 09/16/25 History release 24 hr lidocaine 4 % topical patch 1 patch topical DAILY PRN pain #5 09/17/25 Rx (Salonpas (lidocaine)) ea oxycodone 5 mg tablet 5 mg PO Q8H PRN severe pain (scale 09/17/25 Rx score 7-10) #8 tabs Hospital Stay Data Consultations 09/16/25 15:17 Consult Orthopedic Spine Surgery Routine ED Decision to Admit Stat Diagnostic Imagining Performed 09/16/25 12:52 CT abd pelvis IV con only Stat CT cervical spine wo con Stat CT chest diagnostic w con Stat CT head/brain wo con Stat 09/16/25 14:14 CT lumbar spine w con Stat 09/16/25 14:48 MRI Lumbar Spine [MR lumbar spine wo con] Stat Chest X-Ray 09/16/25 12:47 XR chest 1V portable CLINICAL HISTORY: Trauma COMPARISON STUDY: None FINDINGS: Heart size and pulmonary vasculature are normal. No consolidation or pleural effusion. No pneumothorax. IMPRESSION: No acute findings. ACT 112: Negative or not required by law. Electronically signed by: Saul Alfaro M.D. 09/16/2025 1:08 PM Pelvis X-Ray 09/16/25 12:47 XR pelvis 1-2V routine CLINICAL HISTORY: Trauma COMPARISON: None FINDINGS: No fracture or dislocation seen. IMPRESSION: No fracture seen. ACT 112: Negative or not required by law. Electronically signed by: Saul Alfaro M.D. 09/16/2025 1:08 PM Abdomen/Pelvis CT 09/16/25 12:52 CT SCAN OF THE ABDOMEN AND PELVIS WITH IV CONTRAST CLINICAL HISTORY: Fall. COMPARISON STUDY: Pelvic x-ray dated 09/16/2025. TECHNIQUE: Following the IV administration of 94 cc of Optiray 320, CT scan of the abdomen and pelvis is performed from the lung bases to the proximal femora. Images are reviewed in the axial, sagittal, and coronal planes. IV contrast was administered without complication. A dose lowering technique was utilized adhering to the principles of ALARA. CT DOSE: 3853.91 mGy.cm FINDINGS: Lung bases: The heart is normal in size and without pericardial effusion. The lung bases are clear noting mild bibasilar atelectasis. Liver: The contrast-enhanced liver is normal in size, contour, and attenuation. There is no intrahepatic biliary ductal dilatation. The hepatic veins and portal veins are patent. Gallbladder: Surgically absent noting clips in the gallbladder fossa. Spleen: Normal in size and attenuation. Pancreas: Unremarkable. Adrenal glands: Unremarkable. Kidneys: The contrast enhanced kidneys are normal in size and without hydronephrosis. The kidneys enhance symmetrically. Scattered subcentimeter cortical hypodensities likely represent cysts but are too small for definitive characterization. Abdominal vasculature: The abdominal aorta is normal in course and caliber. Bowel: There is no bowel obstruction. Mild fecal retention is seen throughout the colon. The appendix is not visualized. Peritoneum: There is no intraperitoneal free air or abdominal ascites. There is a fat-containing umbilical hernia. Lymphadenopathy: None. Pelvic viscera: The bladder is distended but otherwise normal as imaged. The prostate and seminal vesicles are normal as visualized. Skeletal structures: There is a complex comminuted compression fracture of the L2 vertebral body. This is best seen on sagittal image #46 comment fractures involve the superior endplate, and inferior endplate, the anterior cortex, as well as both the medial and lateral cortex. This does not appear to extend through the posterior cortex, and there is no posterior element involvement identified. There is only mild loss of height. No retropulsion of fragments is seen. There is associated paravertebral hemorrhage, as well as intramuscular hemorrhage within the right dany of the diaphragm seen on axial image #137. There is a mild chronic-appearing superior endplate compression deformity of L1. No additional acute fracture is identified. The bony pelvis and proximal femora appear intact. Mild sclerotic changes noted in the sacroiliac joints. There is a left-sided pars defect at L5. Mild lumbosacral spondylosis is observed. No lytic or blastic lesions are seen. IMPRESSION: 1. There is a complex comminuted compression fracture of the L2 vertebral body as detailed above. Although this does not involve the posterior cortex this may be unstable. Orthopedic evaluation is advised. 2. There is only mild loss of height at L2, with no retropulsion of fragments seen. 3. There is paravertebral hemorrhage at L2, as well as intramuscular hemorrhage within the right dany of the diaphragm. 4. There is no evidence of solid organ injury in the abdomen or pelvis. 5. Additional findings as above. ACT 112: Negative or not required by law. Electronically signed by: Aubrey Crenshaw M.D. 09/16/2025 2:[address] 09/16/25 12:52 CT SCAN OF THE CERVICAL SPINE CLINICAL HISTORY: Fall COMPARISON STUDY: No priors TECHNIQUE: CT scan of the cervical spine is performed from the skull base to the upper thoracic spine. Images are reviewed in the axial, sagittal, and coronal planes. IV contrast was not administered for this examination. A dose lowering technique was utilized adhering to the principles of ALARA. FINDINGS: Skeletal structures: The skeletal structures are well mineralized. There is no evidence of fracture or subluxation involving the cervical spine. Vertebral body height and alignment are maintained. There is straightening of the cervical lordosis. Anterior osteophytes are seen throughout. The odontoid process and lateral masses are intact. The atlantoaxial articulation is preserved noting productive degenerative change. The spinous processes appear intact. Mild facet arthropathy seen in the lower cervical region. Intervertebral discs: There is mild disc space narrowing at C5-C6 and C6-C7. The remaining disc spaces are preserved. Central canal: Posterior disc osteophyte complexes at C5-C6 and C6-C7 may contribute to mild acquired compromise of the central canal. Soft tissues: The prevertebral and paraspinous soft tissues are within normal limits. Calvarium: The visualized calvarium at the skull base appears intact. Brain parenchyma: Partially visualized brain parenchyma at the skull base is within normal limits. Sinuses and mastoids: The visualized paranasal sinuses are clear. The mastoid air cells are well pneumatized. Lung apices: Clear as visualized. IMPRESSION: There is no evidence of fracture or subluxation involving the cervical spine. ACT 112: Negative or not required by law. Electronically signed by: Aubrey Crenshaw M.D. 09/16/2025 1:[address] 09/16/25 12:52 CT SCAN OF THE CHEST WITH IV CONTRAST CLINICAL HISTORY: Fall. COMPARISON STUDY: Chest radiograph performed earlier today. TECHNIQUE: Following the IV administration of 94 cc of Optiray 320, CT scan of the thorax was performed from the thoracic inlet to the upper abdomen. Images are reviewed in the axial, sagittal, and coronal planes. IV contrast was administered without complication. A dose lowering technique was utilized adhering to the principles of ALARA. FINDINGS: There is no evidence for traumatic injury to the thoracic aorta. Size of the heart is normal. There is no pericardial effusion. There is no mediastinal hematoma. No pneumothorax or pleural effusion is present. There is no pulmonary contusion. There are no suspicious pulmonary nodules. Linear densities within the lungs represent atelectasis. No acute rib or thoracic spine fractures are identified. The abdomen and pelvis CT will be reported separately. IMPRESSION: No acute traumatic findings within the chest. ACT 112: Negative or not required by law. Electronically signed by: Julius Fletcher M.D. 09/16/2025 2:[address] 09/16/25 12:52 CT head/brain wo con CLINICAL HISTORY: fall, on eliquis. TECHNIQUE: Multiple axial CT images of the head were obtained without contrast. A dose lowering technique was utilized adhering to the principles of ALARA. COMPARISON: None FINDINGS: No intracranial hemorrhage seen. No mass effect, midline shift, or hydrocephalus. Visualized paranasal sinuses and mastoid air cells are clear. No skull fracture seen. IMPRESSION: No acute findings. ACT 112: Negative or not required by law. The above report was generated using voice recognition software. It may contain grammatical, syntax or spelling errors. Electronically signed by: Saul Alfaro M.D. 09/16/2025 1:[address] 09/16/25 14:14 CT SCAN OF THE LUMBAR SPINE WITH IV CONTRAST CLINICAL HISTORY: L2 fracture. Fall. COMPARISON STUDY: Abdominal CT performed the same date 09/16/2025. TECHNIQUE: Following the IV administration 94 cc of Optiray 320, CT scan of the lumbar spine is performed from the lower thoracic spine to the sacrum. Images are reviewed in the axial, sagittal, and coronal planes. IV contrast was administered without complication. A dose lowering technique was utilized adhering to the principles of ALARA. FINDINGS: Skeletal structures: The skeletal structures are well mineralized. Again seen is a complex comminuted compression fracture of the L2 vertebral body. This is best seen on sagittal image #53, and the fracture involves the superior and inferior endplates, the anterior cortex, as well as both the medial and lateral cortex. This does not appear to extend through the posterior cortex, and there is no posterior element involvement identified. There is only mild loss of height. No retropulsion of fragments is seen. There is associated paravertebral hemorrhage, as well as intramuscular hemorrhage within the right dany of the diaphragm seen on axial image #52. There is a mild chronic-appearing superior endplate compression deformity of L1. Vertebral body height is otherwise maintained throughout the lumbar spine. Alignment is preserved. Tiny anterior and lateral marginal osteophytes are seen throughout. The transverse and spinous processes appear intact. A left-sided pars defect is noted at L5. No lytic or blastic lesion is seen. The disc spaces appear maintained. Posterior discussed effect complexes at L4-L5 and L5-S1 may contribute to mild acquired compromise of the central canal. The abdominal aorta is normal in caliber. No retroperitoneal lymphadenopathy is seen. IMPRESSION: 1. There is a complex comminuted compression fracture of the L2 vertebral body as detailed above. Although this does not involve the posterior cortex this may be unstable. Orthopedic evaluation is advised. 2. There is only mild loss of height at L2, with no retropulsion of fragments seen. 3. There is paravertebral hemorrhage at L2, as well as intramuscular hemorrhage within the right dany of the diaphragm. 4. There is a mild and chronic appearing superior endplate compression deformity of L1. 5. Additional findings as above. ACT 112: Negative or not required by law. Electronically signed by: Aubrey Crenshaw M.D. 09/16/2025 3:18 PM Lumbar Spine MRI 09/16/25 14:48 MR lumbar spine wo con CLINICAL HISTORY: L2 fx. COMPARISON: CT earlier today TECHNIQUE: Multiplanar, multi sequence MRI of the lumbar spine was performed without intravenous contrast. FINDINGS: Conus medullaris terminates normally at L1. There is mild height loss at the T12 and L1 vertebral bodies without increased STIR signal consistent with old vertebral body compression abnormality. There is moderate height loss at the L2 vertebral body with diffuse increased STIR signal consistent with acute fracture. No significant retropulsion seen. No other fracture or subluxation seen at the lung spine. No epidural hematoma seen. There is diffuse degenerative disc disease with facet and ligamentum flavum hypertrophy. Epidural fat is present. L1-2: No significant central canal or neural foraminal narrowing seen. L2-3: There is a minimal disc bulge. No significant central canal or neuroforaminal narrowing. L3-4: No significant disc bulge. No significant central canal or neural foraminal narrowing. L4-5: There is a mild disc bulge with annular tear. No significant central canal narrowing. There is mild bilateral neural foraminal narrowing. L5-S1: There is a moderate disc bulge with annular tear. No significant central canal narrowing. There is moderate right and mild left neural foraminal narrowing. There is a 1.5 cm round low signal finding centrally in the L5 vertebral body, nonspecific, but could represent atypical hemangioma. IMPRESSION: 1. Moderate acute vertebral body compression fracture at L2 without significant retropulsion or epidural hematoma. 2. Nonspecific low signal finding at the L5 vertebral body could represent atypical hemangioma and is felt to probably be benign in the absence of known primary malignancy. Follow-up lumbar MRI recommended in 6 months to reevaluate. 3. Otherwise as described. ACT 112: Positive. There are findings on this exam that require communication between the performing entity and the patient following Patient Test Result Information Act ([place] Act 112) guidelines. The above report was generated using voice recognition software. It may contain grammatical, syntax or spelling errors. Electronically signed by: Saul Alfaro M.D. 09/16/2025 4:06 PM Pending Results Patient Have Any Pending Studies at Discharge: No Discharge Instructions Given to Patient (Per Discharging Provider) MEDICATION CHANGES: HOLD Eliquis today; ok to resume tomorrow and follow up with PCP for CBC in 1 week. Continue to utilize tylenol as needed for pain as well as lidocaine patch. Oxycodone PRN for severe breakthrough pain PENDING TEST RESULTS: None RECOMMENDATIONS FOR FOLLOW-UP: Follow up with PCP as scheduled, repeat CBC in 1 week to monitor hemoglobin Follow up with orthopedic spine in 1-2 weeks for repeat XRs (their office will call you with appointment) Activity recommendations per ortho: weight bearing as tolerated, activity as tolerated with TLSO brace Incidental finding on L- spine MRI at the L5 vertebral body could represent atypical hemangioma and is felt to probably be benign in the absence of known primary malignancy. Follow-up lumbar MRI recommended in 6 months Continue medication regimen as scheduled aside from changes noted above. OTHER INSTRUCTIONS: Seek medical attention if you have: * temperature above 101 * chest pain or trouble breathing * abdominal pain, nausea, vomiting * diarrhea, dark stools or bloody stools * any unanswered questions or concerns Call 911 if symptoms are severe. Please take good care of yourself. Call if you have any questions or problems. You can reach a [facility] hospitalist on duty at [facility] 24 hours a day by calling [phone]. Total Time Total Time Spent Total Time Spent (In Minutes): 40 Supervising Physician Co-Signing Physician Notes Patient is seen and examined on day of discharge. Lower back pain is controlled. Offers no other complaints. Family at bedside. 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 Patient is being managed for closed compression fracture of L2 vertebrae secondary to fall. Appreciate orthopedic spine input. Conservative management. Continue TLSO brace. Pain control as needed. Advised to follow-up with orthospine on discharge. I personally interviewed and examined the patient at bedside. I have reviewed the advanced practitioner's documentation on the date of service referred in note and agree with plan. Patient's care is coordinated with Sara Horner PA-C. Please refer to the documentation above for details of patient's presentation and for discussion of other issues. I spent a total [id number] coordinating, documenting, and providing care for this patient excluding time spent in the performance of separately billed services or time spent by another provider/QHP.
--- NOTE | 2025-09-20 00:31 | Electrocardiogram Report ---
Test Reason : Blood Pressure : */* mmHG Vent. Rate : 85 BPM Atrial Rate : * BPM P-R Int : * ms QRS Dur : 88 ms QT Int : 348 ms P-R-T Axes : * 68 43 degrees QTcB Int : 414 ms Atrial fibrillation Low voltage QRS Cannot rule out Anteroseptal infarct (cited on or before 17-Sep-2016) Abnormal ECG When compared with ECG of 17-Sep-2016 10:37, Questionable change in initial forces of Anterior leads T wave amplitude has decreased in Anterior leads Confirmed by Jadon Metz ([id number]) on 09/20/2025 12:30:41 AM Referred By: REFERRED SELF Confirmed By: Jadon Metz
== END 2025-09-17 13:45 | disposition home or self-care (01) ==
LOC: ED 12:31 → 3E 12:31 → SUATTDRO 15:41 → 3E 19:10